=== PATIENT | male | born 1945 | race Caucasian/White ===

== ENCOUNTER 2020-10-14 11:38 | Emergency (ER) | payer OTHER ==
--- NOTE | 2020-10-14 12:15 | ER ---
Nurse's Notes [facility] Name: Kojo Thompson Age: 75 yrs Sex: Male : 1945 Arrival Date: 10/14/2020 Time: 11:41 Bed Waiting Private MD: Diagnosis: Presentation: 10/14 12:13 Chief complaint: pt told registration that he did not want to be here and if we didn't iw hurry he was leaving, pt eloped from waiting room. ED Course: :41 Patient arrived in ED. [id number] Administered Medications: No medications were administered Outcome: 12:15 Patient left the ED. iw Signatures: Lila Avalos RN RN Karmen Nicholas [id number]
== END 2020-10-14 12:15 | disposition left against medical advice (07) ==
LOC: ER 11:38
DX: Z53.21 Procedure and treatment not carried out due to patient leaving prior to being seen by health care provider (principal)
CPT/HCPCS: 99281